=== PATIENT | female | born 1970 | race Caucasian/White ===

== ENCOUNTER → 2018-11-17 09:30 | Outpatient (CLI) | payer BC, SELFPAY ==
--- NOTE | 2018-11-17 09:39 | MRI_ITS ---
STUDY: MRI LUMBAR SPINE WITH AND WITHOUT CONTRAST REASON FOR EXAM: Female, 48 years old. Low back pain and radicular symptoms of bilateral legs for 8 months. Patient had lumbar surgery in 2014. TECHNIQUE: Standardized fat and water weighted pulse sequences were obtained in the sagittal and axial planes. Dotarem 18 ml IV was administered for the contrast portion of the examination. COMPARISON: MRI of the lumbar spine dated April 04, 2012. FINDINGS: T12-L1: Normal endplates. Normal disc height, signal and morphology. Normal bilateral facet joints. Normal central canal and bilateral lateral recesses. Normal bilateral intervertebral neural foramina. Normal lumbar lordosis. There is no substantial scoliosis. Normal conus medullaris that terminates at the L1 level. L1-2: Normal endplates. Normal disc height, signal and morphology. Normal bilateral facet joints. Normal central canal and bilateral lateral recesses. Normal bilateral intervertebral neural foramina. L2-3: Normal endplates. Normal disc height, signal and morphology. Normal bilateral facet joints. Normal central canal and bilateral lateral recesses. Normal bilateral intervertebral neural foramina. L3-4: Normal endplates. Normal disc height, hydration and morphology. Normal bilateral facet joints. Normal central canal and bilateral lateral recesses. Normal bilateral intervertebral neural foramina. L4-5: There is narrowing of the disc. There is mild anterolisthesis. There is moderately severe degenerative arthropathy of the facet joints. There is mild central acquired canal stenosis. The left neural foramen and right neuroforamen are narrowed without definite nerve impingement. L5-S1: There is narrowing of the disc with vacuum disc phenomenon. There is moderately severe degenerative arthropathy of the facet joints. The neural foramina are severely narrowed, greater on the right with potential impingement of the right L5 nerve root at the neuroforamen. Patient has had a right-sided laminotomy of L5. Normal visualized sacral ala. Normal visualized paraspinous soft tissue structures. There is no demonstrated abnormal enhancement. MRI/Spine Lumbar W/WO Contrast IMPRESSION: 1. Postoperative changes L5-S1 with a right-sided laminectomy. 2. Mild anterolisthesis at L4-5 and L5-S1. 3. Multilevel degenerative disc disease in the degenerative arthropathy of the lumbar spine with acquired canal stenosis, neural foraminal narrowing and potential nerve impingement, as described. Electronically Signed: Glenny Collazo MD at 11:10 EDT , Service support ,
== END ==
PROVIDERS: Family Provider Internal Medicine; PCP Internal Medicine; Referring Provider Nurse Practitioner Family; Visit Provider Nurse Practitioner Family
DX: M46.96 Unspecified inflammatory spondylopathy, lumbar region (principal); M51.17 Intervertebral disc disorders with radiculopathy, lumbosacral region; M51.16 Intervertebral disc disorders with radiculopathy, lumbar region; M47.27 Other spondylosis with radiculopathy, lumbosacral region; M96.1 Postlaminectomy syndrome, not elsewhere classified; M43.16 Spondylolisthesis, lumbar region
CPT/HCPCS: 72158; A9575

== ENCOUNTER → 2019-08-07 12:02 | Outpatient (CLI) | payer BC, SELFPAY ==
--- NOTE | 2019-08-07 12:05 | RAD_ITS ---
STUDY: X-RAY - LUMBAR SPINE REASON FOR EXAM: Female, 48 years old. Surgery for 5 months TECHNIQUE: 5 view(s) of the lumbar spine were obtained. COMPARISON: None FINDINGS: Normal lumbar lordosis. There is no substantial scoliosis. There is a normal alignment of the vertebrae. The patient is status post posterior fusion from L4 to S1. There is vacuum phenomenon at L5-S1. Remainder of the lumbar disc spaces are normal. There is no demonstrated fracture. The soft tissue structures are unremarkable. RAD/L/S Spine Min 4 Views IMPRESSION: Postoperative changes as described above with normal alignment. No acute fracture. Remainder of the X-Ray Lumbar Spine within normal limits. Electronically Signed: Louisa Devlin MD at 3:01 EST , Service support ,
== END ==
PROVIDERS: Family Provider Internal Medicine; PCP Internal Medicine; Referring Provider Nurse Practitioner Family; Visit Provider Nurse Practitioner Family
DX: M96.1 Postlaminectomy syndrome, not elsewhere classified (principal); M54.17 Radiculopathy, lumbosacral region; M47.817 Spondylosis without myelopathy or radiculopathy, lumbosacral region
CPT/HCPCS: 72110

== ENCOUNTER → 2021-08-04 16:19 | Outpatient (CLI) | payer BC, SELFPAY ==
--- NOTE | 2021-08-04 16:50 | MRI_ITS ---
EXAM: MR RIGHT LOWER EXTREMITY WITHOUT INTRAVENOUS CONTRAST, FOOT CLINICAL INDICATION: Right MT stress FX, plantar plate injury Technologist Notes PAIN IN TOES OF RIGHT FOOT. PAIN ON DORSAL AND PLANTAR SURFACES IN FOREFOOT AREA X 3-4 MONTHS. TECHNIQUE: Multiplanar and multisequence MR images of the right foot without intravenous contrast. This report was created using [employer] report generation technology. COMPARISON: None. FINDINGS: LIGAMENTS: MEDIAL COLLATERAL: Unremarkable. Intact. LATERAL COLLATERAL: Unremarkable. Intact. LISFRANC: Unremarkable. Intact. TENDONS: FLEXOR: Unremarkable. Intact. EXTENSOR: Unremarkable. Intact. PERONEAL: Unremarkable. Intact. TIBIALIS ANTERIOR: Unremarkable. Intact. TIBIALIS POSTERIOR: Unremarkable. Intact. MUSCLES: Unremarkable. No edema or myositis. FLUID: Unremarkable. No joint effusion. PLANTAR FASCIA: Unremarkable. Intact. BONES/JOINTS: There is either a nonvisualized stress fracture of the third metatarsal bone versus a diffuse bone bruise. There is diffuse increased T2 signal along the 3rd metatarsal bone. Normal forefoot alignment. No joint effusion. OTHER SOFT TISSUES: Unremarkable. MRI/Lower Ext/No Jt/w/o IMPRESSION: There is either a nonvisualized stress fracture of the third metatarsal bone versus a diffuse bone bruise. Electronically Signed: Damien Ba MD at 21:54 EST , Service support ,
== END ==
PROVIDERS: PCP Internal Medicine; Referring Provider Podiatrist; Visit Provider Podiatrist
DX: M77.41 Metatarsalgia, right foot (principal); M84.374A Stress fracture, right foot, initial encounter for fracture; S89.91XA Unspecified injury of right lower leg, initial encounter; X58.XXXA Exposure to other specified factors, initial encounter; Y93.9 Activity, unspecified; Y92.9 Unspecified place or not applicable; Y99.9 Unspecified external cause status
CPT/HCPCS: 73718

== ENCOUNTER 2021-11-17 12:13 | Outpatient (CLI) | payer BC, SELFPAY ==
[2021-11-17 13:54] LABS: Vitamin D,25 Hydroxy 34.5 ng/mL
== END 2021-11-17 23:59 | disposition home or self-care (01) ==
PROVIDERS: PCP Internal Medicine; Referring Provider Podiatrist; Visit Provider Podiatrist
DX: E55.9 Vitamin D deficiency, unspecified (principal); M84.374A Stress fracture, right foot, initial encounter for fracture; X58.XXXA Exposure to other specified factors, initial encounter
CPT/HCPCS: 36415; 82306

== ENCOUNTER → 2023-02-18 | Outpatient (CLI) | payer BC, SELFPAY ==
[2023-02-20 17:07] LABS: Endomysial Antibody IgA Negative (Negative); Immunoglobulin A 135 mg/dL (87-352); t-Transglutaminase IgA <2 U/mL (0-3)
== END | disposition home or self-care (01) ==
LOC: MTLAB 15:59
PROVIDERS: PCP Internal Medicine; Referring Provider Internal Medicine Gastroenterology; Visit Provider Internal Medicine Gastroenterology
DX: R10.9 Unspecified abdominal pain (principal)
CPT/HCPCS: 36415; 82784; 83516; 86140; 86255